=== PATIENT | female | born 1965 | race Caucasian/White ===

== ENCOUNTER 2018-05-03 17:18 | Emergency (ER) | payer SELFPAY, BC | END 2018-05-03 19:58 | disposition left against medical advice (07) | LOC: E/R 17:18 | DX: Z53.21 Procedure and treatment not carried out due to patient leaving prior to being seen by health care provider (principal) ==

== ENCOUNTER 2018-08-03 23:17 | Emergency (ER) | payer BC ==
[2018-08-04] MEDS: HYDROCODONE/APAP (5/325) TAB PO (01:56)
== END 2018-08-04 02:02 | disposition home or self-care (01) ==
LOC: FTE 23:17
DX: H57.13 Ocular pain, bilateral (principal); Z87.891 Personal history of nicotine dependence
CPT/HCPCS: 99283

== ENCOUNTER 2018-10-30 15:01 | Emergency (ER) | payer BC ==
[2018-10-30] MEDS: DIAZEPAM 5 MG TAB PO (17:32)
[2018-10-30] MEDS: KETOROLAC 30 MG INJ IM (17:32)
== END 2018-10-30 18:54 | disposition home or self-care (01) ==
LOC: FTE 15:01
DX: S13.4XXA Sprain of ligaments of cervical spine, initial encounter (principal); R07.9 Chest pain, unspecified; V49.50XA Passenger injured in collision with unspecified motor vehicles in traffic accident, initial encounter
CPT/HCPCS: 71046; 72040; 72072; 72100; 76705; 96372; 99285-25